=== PATIENT | female | born 1970 | race Caucasian/White ===

== ENCOUNTER 2019-03-13 20:18 | Emergency (ER) | payer OTHER ==
[~2019-03-13] VITALS: Ht 170.2 cm; Wt 54.4 kg
[2019-03-13 20:26] VITALS: BP 142/86
[2019-03-13] MEDS ORDERED: SSD CREAM 1% 5050 GM TOP (20:41)
== END 2019-03-13 20:53 | disposition home or self-care (01) ==
LOC: M.ERS 20:18
DX: T25.222A Burn of second degree of left foot, initial encounter (principal); T31.0 Burns involving less than 10% of body surface; Z88.1 Allergy status to other antibiotic agents; Z98.890 Other specified postprocedural states; Z90.49 Acquired absence of other specified parts of digestive tract

== ENCOUNTER 2020-09-12 08:44 | Emergency (ER) | payer BC ==
[~2020-09-12] VITALS: Ht 170.2 cm; Wt 59.0 kg
[~2020-09-12 08:44] MED LIST: SSD CREAM 1% 5050 GM TOP
[2020-09-12] MEDS ORDERED: AMBIEN5 MG PO (08:58)
[2020-09-12] MEDS ORDERED: TAGRISSO80 MG PO (08:58)
[2020-09-12] MEDS ORDERED: XANAX 0.25 MG0.25 MG PO (08:58)
[2020-09-12 09:40] LABS: ABSOLUTE BASOPHILS 0.1 thou/uL (0.0-0.2); ABSOLUTE EOSINOPHILS 0.3 thou/uL (0.0-0.7); ABSOLUTE LYMPHOCYTES 1.6 thou/uL (0.8-5.3); ABSOLUTE MONOCYTES 0.5 thou/uL (0.0-1.2); ABSOLUTE NEUTROPHILS 2.5 thou/uL (1.6-8.1); BASOPHILS 1.4 %; EOSINOPHILS 5.5 %; HEMATOCRIT 37.7 % (37.0-47.0); HEMOGLOBIN 12.5 gm/dL (12.0-15.0); LYMPHOCYTES 32.1 %; MCH 29.7 pg (26.0-34.0); MCHC 33.2 g/dL (28.0-37.0); MCV 89.5 fL (80.0-100.0); MONOCYTES 10.3 %; MPV 7.7 fl. (7.2-11.1); NUCLEATED RBCS 0 /100WBC; PLATELET COUNT* 202 thou/uL (150-400); POLYS 50.7 %; RBC 4.22 mil/uL (4.20-5.00); RDW-CV 12.4 % (10.5-14.5); WBC 4.9 thou/uL (4.0-11.0)
[2020-09-12 09:40] LABS: URINE BILIRUBIN NEGATIVE (Negative); URINE BLOOD NEGATIVE (Negative); URINE CLARITY CLEAR; URINE COLOR STRAW; URINE GLUCOSE-RANDOM NEGATIVE (Negative); URINE KETONES NEGATIVE (Negative); URINE LEUKOCYTES-REFLEX NEGATIVE (Negative); URINE NITRITE-REFLEX NEGATIVE (Negative); URINE PROTEIN NEGATIVE (Negative); URINE UROBILINOGEN 0.2 E.U./dl (0.2-1.0)
[2020-09-12 09:50] LABS: CALCIUM 8.7 mg/dL (8.5-10.1); CREATININE 1.2 mg/dL (0.6-1.3); POTASSIUM 4.5 mmol/L (3.5-5.1)
[2020-09-12 10:01] LABS: ALBUMIN 3.7 g/dL (3.4-5.0); TOTAL BILIRUBIN 0.4 mg/dL (<0.1-1.0)
[2020-09-12] MEDS ORDERED: MECLIZINE HCL25 M1 PO (13:33)
[2020-09-12 13:52] VITALS: BP 106/69
--- NOTE | 2020-09-13 12:16 | EKG ---
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
== END 2020-09-12 13:53 | disposition home or self-care (01) ==
LOC: M.ERS 08:44
PROVIDERS: Emergency Medicine Emergency Medical Services
DX: R42 Dizziness and giddiness (principal); Z88.1 Allergy status to other antibiotic agents; Z90.49 Acquired absence of other specified parts of digestive tract

== ENCOUNTER 2020-10-14 13:40 | Emergency (ER) | payer BC ==
[~2020-10-14] VITALS: Ht 170.2 cm; Wt 56.7 kg
[~2020-10-14 13:40] MED LIST changes: +AMBIEN5 MG PO; +MECLIZINE HCL25 M1 PO; +TAGRISSO80 MG PO; +XANAX 0.25 MG0.25 MG PO
[2020-10-14] MEDS ORDERED: MEDROLDOSEPACK PO (13:46)
[2020-10-14 14:13] LABS: ABSOLUTE BASOPHILS 0.2 thou/uL (0.0-0.2); ABSOLUTE MONOCYTES 0.4 thou/uL (0.0-1.2); ABSOLUTE NEUTROPHILS 3.5 thou/uL (1.6-8.1); BASOPHILS 2.5 %; EOSINOPHILS 0.1 %; HEMATOCRIT 37.8 % (37.0-47.0); HEMOGLOBIN 12.7 gm/dL (12.0-15.0); LYMPHOCYTES 33.2 %; MCH 30.1 pg (26.0-34.0); MCHC 33.6 g/dL (28.0-37.0); MCV 89.5 fL (80.0-100.0); MONOCYTES 7.3 %; MPV 8.7 fl. (7.2-11.1); NUCLEATED RBCS 0 /100WBC; PLATELET COUNT* 234 thou/uL (150-400); POLYS 56.9 %; RBC 4.23 mil/uL (4.20-5.00); RDW-CV 12.4 % (10.5-14.5); WBC 6.1 thou/uL (4.0-11.0)
[2020-10-14 14:25] LABS: CREATININE 1.1 mg/dL (0.6-1.3); POTASSIUM 4.2 mmol/L (3.5-5.1)
[2020-10-14 14:34] LABS: MAGNESIUM 2.1 mg/dL (1.8-2.4); TOTAL BILIRUBIN 0.5 mg/dL (<0.1-1.0); TOTAL PROTEIN 7.4 g/dL (6.4-8.2)
[2020-10-14] MEDS ORDERED: NORCO 5-325 TA1 EAC2 PO (16:45)
[2020-10-14 16:58] VITALS: BP 113/64
--- NOTE | 2020-10-14 17:31 | EKG ---
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[place] : 1970 Requested By: Nico Mora Order Number: [id number] MD: Angel Santiago Measurements Intervals [place] Rate: 62 P: 78 MT: 137 QRS: 48 QRSD: 107 T: 62 QT: 409 QTc: 416 Interpretive Statements Sinus rhythm Possible anteroseptal infarct, old Compared to ECG 09/12/2020 09:17:18 Myocardial infarct finding now present Electronically Signed On 10-14-2020 17:31:42 WEED SCIENCE RESEARCH TECHNICIAN by Angel Santiago [email or web address] <ELECTRONICALLY SIGNED> By: Angel Santiago MD, FAC 10/14/20 1731 1344 1344 Angel Santiago MD, [facility] /EPI
--- NOTE | 2020-10-15 12:46 | EKG ---
[place] [address] ELECTROCARDIOGRAM REPORT Name: JOSE CRESPO Room: [facility]#: [id number] Admission: 10/14/20 Attend Phys: Discharge: 10/14/20 Date of : 72 Date of Service: 10/14/20 1548 Report #: [id number] THIS REPORT FOR: //name// [facility] ED Test Date: 2020-10-14 Test Time: 15:48:33 Pat Name: JOSE CRESPO Department: Room: Gender: Director [facility] 1970 Requested By: Nico Mora Order Number: [id number] MD: Angel Santiago Measurements Intervals [place] Rate: 63 P: 78 [place]: 166 QRS: 61 QRSD: 104 T: 62 QT: 417 QTc: 427 Interpretive Statements Sinus rhythm Possible anteroseptal infarct, age indeterminate Compared to ECG 10/14/2020 13:44:28 No significant changes Electronically Signed On 10-15-2020 12:46:49 AIR INTERCEPT CONTROLLER SUPERVISOR by Angel Santiago [email or web address] <ELECTRONICALLY SIGNED> By: Angel Santiago MD, [facility] 10/15/20 1246 1548 1548 Angel Santiago MD, [facility] /EPI
== END 2020-10-14 16:59 | disposition home or self-care (01) ==
LOC: M.ERS 13:40
PROVIDERS: Emergency Medicine Emergency Medical Services
DX: R07.89 Other chest pain (principal); Z88.1 Allergy status to other antibiotic agents; Z98.890 Other specified postprocedural states; Z85.118 Personal history of other malignant neoplasm of bronchus and lung